=== PATIENT | female | born 1980 | race Caucasian/White ===

== ENCOUNTER 2019-06-30 11:15 | Emergency (ER) | payer BC, OTHER ==
[~2019-06-30] VITALS: Ht 157.5 cm; Wt 43.1 kg
--- NOTE | 2019-06-30 11:15 | NUR ---
ED Nurse Note: Patient brought in by ambulance from work due to Rt flank pain 6/10 and N/V 2 hours prior to arrival. per pt, she was diagnosed with UTI few days ago in clinic in [place] and started the first dose of Cipro last night. pt denied substance or alcohol abuse. mild anxious noted but follows commands and cooperative. skin clean and intact. tachycardia at 132/min noted upon arrival. pt is in gown and on surveillance system monitor.
[2019-06-30] MEDS ORDERED: LEXAPRO20 MG ORAL (11:19)
[2019-06-30 11:25] VITALS: BP 128/86
--- NOTE | 2019-06-30 11:32 | NUR ---
ED Nurse Note: HR went down to 113/min. pt is less anxious. pt reported "I feel much better than when I was at work."
--- NOTE | 2019-06-30 11:33 | NUR ---
ED Nurse Note: ERMD at bedside.
--- NOTE | 2019-06-30 11:42 | Emergency Room Report ---
History of Present Illness General Chief Complaint: Vomiting Source: Patient Present Illness HPI 39-year-old female no reported past medical history presented with feelings of right flank pain weakness dizziness nausea and vomiting. Patient seen at an outside ER yesterday diagnosed with a urinary tract infection discharged on ciprofloxacin. She took 1 dose yesterday however today developed a fever, worsening right flank pain while at work. Had an episode of nausea and vomiting. Presented by EMS. Pain is 8 out of 10 in the right flank worse with palpation. She denies history of kidney stone or gallbladder disease. She denies chest pain. Allergies: Coded Allergies: No Known Allergies (Unverified , 06/30/19) Patient History Past Medical History: see triage record Last Menstrual Period: 2 WEEKS AGO Reviewed Nursing Documentation: PMH: Agreed; PSxH: Agreed Nursing Documentation-PMH Past Medical History: No History, Except For History Of Psychiatric Problem: Yes - ANXIETY, DEPRESSION Review of Systems All Other Systems: negative except mentioned in HPI Physical Exam Vital Signs Date Time Temp Pulse Resp B/P (MAP) Pulse Ox O2 Delivery O2 Flow Rate FiO2 06/30/19 11:14 100.6 136 20 135/81 (99) 98 Room Air Sp02 EP Interpretation: reviewed, normal General Appearance: well appearing, no apparent distress Head: normocephalic, atraumatic Eyes: bilateral eye PERRL, bilateral eye EOMI ENT: hearing grossly normal, moist mucus membranes Neck: full range of motion, supple Respiratory: lungs clear, normal breath sounds, no rhonchi, no respiratory distress, no retraction, no wheezing Cardiovascular #1: normal peripheral pulses, no murmur, other - Tachycardic with regular rhythm Gastrointestinal: non tender, soft, non-distended, no guarding Genitourinary: CVA tenderness (R), other - No left-sided CVA tenderness Neurologic: alert, oriented x3, no focal defects Skin: normal color, warm/dry Medical Decision Making Diagnostic Impression: Primary Impression: Acute pyelonephritis ER Course Patient presented for right flank pain. Patient diagnosed with a UTI yesterday. Differential included but not limited to pyelonephritis, did consider kidney stone but I believe less likely. Patient was febrile on arrival. Urinalysis positive for leukocytes and nitrites. ER patient given IV fluids, pain control, IV antibiotics. Reassessment patient feeling improved. I did offer admission to the hospital however she wished to go home. Will be discharged home with continued oral antibiotic ibuprofen and Zofran as needed. I gave her strict return precautions. She was agreeable with the plan. Laboratory Tests Test 06/30/19 11:20 06/30/19 12:30 White Blood Count 5.0 K/UL (4.8-10.8) Red Blood Count 4.01 M/UL (4.20-5.40) L Hemoglobin 13.8 G/DL (12.0-16.0) Hematocrit 39.4 % (37.0-47.0) Mean Corpuscular Volume 98 FL (80-99) Mean Corpuscular Hemoglobin 34.4 PG (27.0-31.0) H Mean Corpuscular Hemoglobin Concent 35.1 G/DL (32.0-36.0) Red Cell Distribution Width 11.6 % (11.6-14.8) Platelet Count 184 K/UL (150-450) Mean Platelet Volume 5.8 FL (6.5-10.1) L Neutrophils (%) (Auto) % (45.0-75.0) Lymphocytes (%) (Auto) % (20.0-45.0) Monocytes (%) (Auto) % (1.0-10.0) Eosinophils (%) (Auto) % (0.0-3.0) Basophils (%) (Auto) % (0.0-2.0) Differential Total Cells Counted 100 Neutrophils % (Manual) 91 % (45-75) H Lymphocytes % (Manual) 7 % (20-45) L Monocytes % (Manual) 2 % (1-10) Eosinophils % (Manual) 0 % (0-3) Basophils % (Manual) 0 % (0-2) Band Neutrophils 0 % (0-8) Platelet Estimate Adequate Platelet Morphology Normal Red Blood Cell Morphology Normal Sodium Level 140 MMOL/L (136-145) Potassium Level 3.7 MMOL/L (3.5-5.1) Chloride Level 101 MMOL/L (98-107) Carbon Dioxide Level 26 MMOL/L (21-32) Anion Gap 13 mmol/L (5-15) Blood Urea Nitrogen 10 mg/dL (7-18) Creatinine 0.6 MG/DL (0.55-1.30) Estimate Glomerular Filtration Rate > 60 mL/min (>60) Glucose Level 89 MG/DL (74-106) Lactic Acid Level 1.60 mmol/L (0.4-2.0) Calcium Level 9.2 MG/DL (8.5-10.1) Total Bilirubin 1.3 MG/DL (0.2-1.0) H Direct Bilirubin 0.3 MG/DL (0.0-0.3) Aspartate Amino Transferase (AST) 40 U/L (15-37) H Alanine Aminotransferase (ALT) 28 U/L (12-78) Alkaline Phosphatase 99 U/L (46-116) Total Protein 7.5 G/DL (6.4-8.2) Albumin 3.6 G/DL (3.4-5.0) Globulin 3.9 g/dL Albumin/Globulin Ratio 0.9 (1.0-2.7) L Urine Color [place] Urine Appearance Clear Urine pH 6 (4.5-8.0) Urine Specific [place] 1.005 (1.005-1.035) Urine Protein 2+ (NEGATIVE) H Urine Glucose (UA) Negative (NEGATIVE) Urine Ketones 1+ (NEGATIVE) H Urine Blood 4+ (NEGATIVE) H Urine Nitrite Positive (NEGATIVE) H Urine Bilirubin 2+ (NEGATIVE) H Urine Ictotest Negative (NEGATIVE) Urine Urobilinogen 8 MG/DL (0.0-1.0) H Urine Leukocyte Esterase 3+ (NEGATIVE) H Urine RBC 5-10 /HPF (0 - 2) H Urine WBC 20-30 /HPF (0 - 2) H Urine Squamous Epithelial Cells Few /LPF (NONE/OCC) Urine Bacteria Moderate /HPF (NONE) H EKG Diagnostic Results EKG Time: 11:25 EP Interpretation: Rich Hu Rate: tachycardiac Other Impression Sinus tachy, Right axis deviation Rhythm Strip Diag. Results Rhythm Strip Time: 14:30 EP Interpretation: yes Rate: 90 Rhythm: NSR, no ectopy Last Vital Signs Date Time Temp Pulse Resp B/P (MAP) Pulse Ox O2 Delivery O2 Flow Rate FiO2 06/30/19 11:25 100.6 132 22 128/86 98 Room Air Status: improved Disposition: HOME, SELF-CARE Condition: Stable Scripts Ondansetron Odt* (ZOFRAN ODT*) 4 Mg Tab.rapdis 4 MG BC EVERY 8 HOURS PRN for Nausea & Vomiting, #10 TAB 0 Refills Prov: Rich Hu M.D. 06/30/19 Ibuprofen* (MOTRIN*) 600 Mg Tablet 600 MG ORAL Q8H PRN for For Pain, #30 TAB 0 Refills Prov: Rich Hu M.D. 06/30/19 Rich Hu M.D. Jun 30, 2019 11:42
--- NOTE | 2019-06-30 11:46 | NUR ---
ED Nurse Note: blood sent to lab.
[2019-06-30 12:00] LABS: HEMATOCRIT 39.4 % (37.0-47.0); HEMOGLOBIN 13.8 G/DL (12.0-16.0); MEAN CORPUSCULAR VOLUME 98 FL (80-99); PLATELET COUNT 184 K/UL (150-450); RED BLOOD COUNT 4.01 M/UL (4.20-5.40); RED CELL DISTRIBUTION WIDTH 11.6 % (11.6-14.8)
[2019-06-30] MEDS ORDERED: Ketorolac 30mg Inj IV ONE (12:00)
[2019-06-30 12:13] LABS: ANION GAP 13 mmol/L (5-15); BLOOD UREA NITROGEN 10 mg/dL (7-18); CALCIUM 9.2 MG/DL (8.5-10.1); CARBON DIOXIDE 26 MMOL/L (21-32); CHLORIDE 101 MMOL/L (98-107); CREATININE 0.6 MG/DL (0.55-1.30); POTASSIUM 3.7 MMOL/L (3.5-5.1); SODIUM 140 MMOL/L (136-145)
[2019-06-30 12:29] LABS: ALANINE AMINOTRANSFERASE 28 U/L (12-78); ALBUMIN 3.6 G/DL (3.4-5.0); ALBUMIN/GLOBULIN RATIO 0.9 (1.0-2.7); ALKALINE PHOSPHATASE 99 U/L (46-116); ASPARTATE AMINO TRANSFERASE 40 U/L (15-37); BILIRUBIN,TOTAL 1.3 MG/DL (0.2-1.0)
[2019-06-30 13:02] LABS: BILIRUBIN,DIRECT 0.3 MG/DL (0.0-0.3)
[2019-06-30 13:27] LABS: APPEARANCE,URINE CLEAR; BILIRUBIN, URINE 2+ (NEGATIVE); GLUCOSE, URINE (UA) NEGATIVE (NEGATIVE); KETONES,URINE 1+ (NEGATIVE); LEUKOCYTE ESTERASE ,URINE 3+ (NEGATIVE); NITRITE,URINE POSITIVE (NEGATIVE); PH,URINE 6 (4.5-8.0); PROTEIN,URINE 2+ (NEGATIVE); UROBILINOGEN,URINE 8 MG/DL (0.0-1.0)
[2019-06-30 13:52] LABS: COLOR,URINE ORANGE
[2019-06-30] MEDS ORDERED: ONDANSETRON ODT4 MG BC (14:07)
[2019-06-30] MEDS ORDERED: IBUPROFEN600 MG ORAL (14:07)
[2019-06-30 15:04] VITALS: BP 128/75
--- NOTE | 2019-06-30 15:06 | NUR ---
ED Nurse Note: Pt cleared by health care Provider for discharge. DC instructions/prescription was given and explained to pt and verbalized understanding of teachings. All medical deviecs such as ID band removed. Pt is AAO x4, ambulatory and left with all personal belongings. Patient verbalized resolved pain and improved condition prior to discharge.
--- NOTE | 2019-07-01 07:39 | Emergency Room Report ---
Physical Exam Vital Signs Date Time Temp Pulse Resp B/P (MAP) Pulse Ox O2 Delivery O2 Flow Rate FiO2 06/30/19 11:14 100.6 136 20 135/81 (99) 98 Room Air Medical Decision Making Diagnostic Impression: Primary Impression: Acute pyelonephritis ER Course Patient recently seen in the emergency department for pyelonephritis. Blood and urine cultures have returned preliminary positive for gram-negative rods. Gram-negative mark anthony seen in both bottles. Contacted the patient at home who reported she was feeling better but still febrile. Provided her culture results and advised her to go to the nearest hospital for repeat cultures, IV antibiotics and admission. She agrees with this treatment plan. Will have the admitting hospital and her PMD call for culture results. Advised to call the ED with any questions. Last Vital Signs Date Time Temp Pulse Resp B/P (MAP) Pulse Ox O2 Delivery O2 Flow Rate FiO2 06/30/19 15:04 98.6 98 18 128/75 99 Room Air Disposition: HOME, SELF-CARE Condition: Stable Scripts Ondansetron Odt* (ZOFRAN ODT*) 4 Mg Tab.rapdis 4 MG BC EVERY 8 HOURS PRN for Nausea & Vomiting, #10 TAB 0 Refills Prov: Rich Hu M.D. 06/30/19 Ibuprofen* (MOTRIN*) 600 Mg Tablet 600 MG ORAL Q8H PRN for For Pain, #30 TAB 0 Refills Prov: Rich Hu M.D. 06/30/19 Patient Instructions: Pyelonephritis, Adult, [id number] Additional Instructions: Patient is instructed to follow-up with her primary care doctor, primary care clinic or [facility] in 1 to 2 days. Patient instructed to return for any worsening symptoms or concerns. Please note that the documentation in this note was used with H-careation technology. Pleae be advised that this may lead to erroneous text due to misinterpretation by the dictation software Scar Jolly MD Jul 01, 2019 07:39
== END 2019-06-30 15:05 | disposition home or self-care (01) ==
LOC: EDBD 11:15 → EMR 12:15
DX: N10 Acute pyelonephritis (principal); F41.9 Anxiety disorder, unspecified; F32.9 Major depressive disorder, single episode, unspecified; R11.2 Nausea with vomiting, unspecified; R42 Dizziness and giddiness; R53.1 Weakness
CPT/HCPCS: 36415; 80053; 81003; 82248; 83605; 85007; 85025; 87040; 87086; 87181; 93005; 96361; 96365; 96375; 99284; J0744; J1885; J7030